=== PATIENT | male | born 1980 | race Two or more races ===

== ENCOUNTER 2017-04-03 04:58 | Emergency (ER) | payer OTHER ==
[2017-04-03 05:22] VITALS: BP 130/94
--- NOTE | 2017-04-03 06:32 | EDM.PDOC ---
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 He was not crushed it was just a simple impact. It hit him on his right side. He complains of pain to the neck head and low back. He may have bumped his head a little bit. There is no loss of consciousness. He said when it hit him he sort of soft flashes of light. right shoulder Pain Score (Numeric/FACES): 8 - Related Data Allergies Allergy/AdvReac Type Severity Reaction Status Date / Time No Known Allergies Allergy Verified 04/03/17 05:16 Home Meds: Home Meds NK [No Known Home Meds] 04/03/17 [History] Past Medical History HEENT History: Reports: None Cardiovascular History: Reports: None Respiratory History: Reports: None Gastrointestinal History: Reports: None Genitourinary History: Reports: None Musculoskeletal History: Reports: None Neurological History: Reports: None Psychiatric History: Reports: None Endocrine/Metabolic History: Reports: None Hematologic History: Reports: None Immunologic History: Reports: None Oncologic (Cancer) History: Reports: None Dermatologic History: Reports: None - Infectious Disease History Infectious Disease History: Reports: None - Past Surgical History Head Surgeries/Procedures: Reports: None HEENT Surgical History: Reports: None Cardiovascular Surgical History: Reports: None Respiratory Surgical History: Reports: None GI Surgical History: Reports: None Endocrine Surgical History: Reports: None Neurological Surgical History: Reports: None Musculoskeletal Surgical History: Reports: None Dermatological Surgical History: Reports: None Social & Family History - Tobacco Use Smoking Status *Q: Never Smoker - Caffeine Use Caffeine Use: Reports: Coffee, Soda - Recreational Drug Use Recreational Drug Use: No Review of Systems - Review of Systems Review Of Systems: ROS reveals no pertinent complaints other than HPI. ED EXAM, GENERAL - Physical Exam Exam: See Below Exam Limited By: No Limitations General Appearance: Alert, WD/WN, No Apparent Distress Eye Exam: Bilateral Eye: EOMI, PERRL Ears: Normal External Exam Nose: Normal Inspection Throat/Mouth: Normal Inspection Head: Atraumatic Neck: Other (There is some minor palpable spasm to the right side of the neck. There is limited range of motion of the neck. He can rotate the neck approximately 45 to the left and only about 30 to the right. Flexion and extension is also decreased. He does not appear to have much discomfort with neck movements.) Respiratory/Chest: Lungs Clear Cardiovascular: Regular Rate, Rhythm Back Exam: Other (There is limited range of motion of the back he can bend over and reach down to the level of his knees. He's not able to go farther than that. Rotation to the left and to the right is somewhat limited. There is a palpable spasm of the left paraspinous muscles in the lower lumbar region.) Extremities: Normal Inspection Neurological: Alert, Oriented, CN II-XII Intact, Normal Cognition, Normal Gait, No Motor/Sensory Deficits Psychiatric: Normal Affect Skin Exam: Warm, Dry Course - Vital Signs Last Recorded V/S: Last Vital Signs Temp 36.3 C 04/03/17 05:16 Pulse 57 L 04/03/17 05:16 Resp 17 04/03/17 05:16 BP 130/94 H 04/03/17 05:16 Pulse Ox 97 04/03/17 05:16 - Orders/Labs/Meds Orders: Active Orders 24 hr Category Date Time Status Cervical Spine 2V or 3V [CR] Stat Exams 04/03/17 05:41 Taken Lumbar Spine 2 or 3V [CR] Stat Exams 04/03/17 05:42 Taken - Radiology Interpretation Free Text/Narrative:: Plain films of the C-spine and lumbosacral spine are remarkable only for some slight curvature of the LS-spine which could represent some splinting. Otherwise the vertebral bodies were all normally aligned. There is no disc space narrowing. Departure - Departure Time of Disposition: 06:32 Disposition: Home, Self-Care 01 Condition: Fair Clinical Impression: Muscle spasms of neck, Lumbar paraspinal muscle spasm - Discharge Information Referrals: PCP,None [Primary Care Provider] - Additional Instructions: It may help to apply heat to the affected areas. Tylenol and or ibuprofen may help with the pain. I expect the muscle spasms to last 2 or 3 days. You may return to work tomorrow if better - My Orders Last 24 Hours: My Active Orders 04/03/17 05:41 Cervical Spine 2V or 3V [CR] Stat 04/03/17 05:42 Lumbar Spine 2 or 3V [CR] Stat - Assessment/Plan Last 24 Hours: My Active Orders 04/03/17 05:41 Cervical Spine 2V or 3V [CR] Stat 04/03/17 05:42 Lumbar Spine 2 or 3V [CR] Stat
--- NOTE | 2017-04-03 08:29 | CR ---
No fracture or dislocation. No prevertebral soft tissue swelling. Vertebral body heights are maintain ed. Disc heights are maintained.
--- NOTE | 2017-04-03 08:31 | CR ---
Vertebral body heights are well-maintained. No fracture.
== END 2017-04-03 06:40 | disposition home or self-care (01) ==
LOC: JP.ED 04:58
DX: M62.838 Other muscle spasm (principal)
CPT/HCPCS: 72040; 72040-26; 72100; 72100-26; 99284

== ENCOUNTER 2017-04-03 15:12 | Emergency (ER) | payer OTHER ==
[2017-04-03 15:54] VITALS: BP 123/73
--- NOTE | 2017-04-03 17:23 | EDM.PDOC ---
ED HPI GENERAL MEDICAL PROBLEM - General Chief Complaint: General Stated Complaint: FOLLOW UP FROM [facility] TODAY Time Seen by Provider: 04/03/17 16:00 Source of Information: Reports: Patient History Limitations: Reports: No Limitations - History of Present Illness INITIAL COMMENTS - FREE TEXT/NARRATIVE: pt arrived with persistent muscle spasm in the cervical and rt lumbasr paraspinous area. Onset: Today Duration: Hour(s): Associated Symptoms: Reports: No Other Symptoms Neck Pain Score (Numeric/FACES): 8 - Related Data Allergies Allergy/AdvReac Type Severity Reaction Status Date / Time No Known Allergies Allergy Verified 04/03/17 15:59 Home Meds: Home Meds NK [No Known Home Meds] 04/03/17 [History] Past Medical History HEENT History: Reports: None Cardiovascular History: Reports: None Respiratory History: Reports: None Gastrointestinal History: Reports: None Genitourinary History: Reports: None Musculoskeletal History: Reports: None Neurological History: Reports: None Psychiatric History: Reports: None Endocrine/Metabolic History: Reports: None Hematologic History: Reports: None Immunologic History: Reports: None Oncologic (Cancer) History: Reports: None Dermatologic History: Reports: None - Infectious Disease History Infectious Disease History: Reports: None - Past Surgical History Head Surgeries/Procedures: Reports: None HEENT Surgical History: Reports: None Cardiovascular Surgical History: Reports: None Respiratory Surgical History: Reports: None GI Surgical History: Reports: None Endocrine Surgical History: Reports: None Neurological Surgical History: Reports: None Musculoskeletal Surgical History: Reports: None Dermatological Surgical History: Reports: None Social & Family History - Tobacco Use Smoking Status *Q: Never Smoker - Caffeine Use Caffeine Use: Reports: Coffee, Soda - Recreational Drug Use Recreational Drug Use: No ED ROS GENERAL - Review of Systems Review Of Systems: See Below Constitutional: Reports: No Symptoms HEENT: Reports: No Symptoms Respiratory: Reports: No Symptoms Cardiovascular: Reports: No Symptoms Endocrine: Reports: No Symptoms GI/Abdominal: Reports: No Symptoms : Reports: No Symptoms Musculoskeletal: Reports: Other (pain in the neck and rt paraspinous area. ) ED EXAM, GENERAL - Physical Exam Exam: See Below Free Text/Narrative:: pt arrived with pain in the rt cervical and rt paraspinous area. Exam Limited By: No Limitations General Appearance: Alert, Anxious Back Exam: Other (pt has ongoing muscle tightness and pain in the rt paraspinous area. He was asked to work but he feels too uncomfortable to work. ) Extremities: Normal Inspection Neurological: Alert, Oriented Course - Vital Signs Last Recorded V/S: Last Vital Signs Temp 36.1 C 04/03/17 15:59 Pulse 68 04/03/17 15:59 Resp 14 04/03/17 15:59 BP 123/73 04/03/17 15:59 Pulse Ox 98 04/03/17 15:59 Departure - Departure Time of Disposition: 17:22 Disposition: Home, Self-Care 01 Condition: Fair Clinical Impression: Muscle pain, cervical, Lumbar paraspinal muscle spasm - Discharge Information Referrals: PCP,None [Primary Care Provider] - Forms: ED Department Discharge Care Plan Goals: pt will not work tonight and will return to work saturday as scheduled.
== END 2017-04-03 17:40 | disposition home or self-care (01) ==
LOC: JP.ED 15:12
DX: M62.838 Other muscle spasm (principal)
CPT/HCPCS: 99283

== ENCOUNTER 2021-10-09 01:55 | Emergency (ER) | payer OTHER ==
[2021-10-09 02:07] VITALS: BP 123/82; PULSE 65
[2021-10-09] MEDS ORDERED: Ketorolac 30 MG/ML SDV IVPUSH ONE (02:25)
[2021-10-09] MEDS ORDERED: Sodium Chloride 0.9% 10 ML Syringe FLUSH PRN (02:25)
[2021-10-09] MEDS ORDERED: Sodium Chloride 0.9% 1,000 ML IV SCH (02:30)
[2021-10-09] MEDS ORDERED: Sodium Chloride 0.9% 50 ML IV STA (02:40)
[2021-10-09] MEDS ORDERED: Iopamidol 612 MG/ML 100 ML Bottle IV STA (02:40)
== END 2021-10-09 04:40 | disposition home or self-care (01) ==
LOC: JP.ED 01:55
DX: S16.1XXA Strain of muscle, fascia and tendon at neck level, initial encounter (principal); S20.219A Contusion of unspecified front wall of thorax, initial encounter; W22.09XA Striking against other stationary object, initial encounter; Y99.0 Civilian activity done for income or pay
CPT/HCPCS: 71260; 72125; 96374; 99283; 99285-25; J1885; J3490; J7030; Q9967